=== PATIENT | female | born 1980 | race African-American/Black ===

== ENCOUNTER 2019-09-22 08:00 | Emergency (ER) | payer MEDICAID ==
--- NOTE | 2019-09-22 09:51 | ER Document Report ---
ED Medical Screen (RME) - General Chief Complaint: Near Syncope Stated Complaint: NAUSEA Time Seen by Provider: 09/22/19 09:40 Notes: Patient is a 39-year-old female who presents emergency department with a chief complaint of nausea and dizziness. Patient reports she is on day 5 of her menstrual cycle and this morning around 3 AM was having lower abdominal cramping. She reports that this did feel like menstrual cramps. She reports at that time she did take some naproxen which did not seem to help initially but right now is denying abdominal cramping as she feels like the medication is finally kicking in. Patient reports she does have a history of heavy menstrual cycles. Patient reports they typically last 7 to 8 days. Patient reports that time she does pass large clots. Patient reports this morning when the pain was severe she got up to walk and did feel dizziness. Patient denies a history of anemia. TRAVEL OUTSIDE OF THE [place] IN LAST 30 DAYS: No - Related Data Allergies/Adverse Reactions: shellfish derived Allergy (Verified 09/22/19 08:12) Past Medical History - Social History Chew tobacco use (# tins/day): No Frequency of alcohol use: None Drug Abuse: None - Past Medical History Cardiac Medical History: Denies: Hx Coronary Artery Disease, Hx Heart Attack, Hx Hypertension Pulmonary Medical History: Denies: Hx Asthma, Hx Bronchitis, Hx COPD, Hx Pneumonia Neurological Medical History: Denies: Hx Cerebrovascular Accident, Hx Seizures GI Medical History: Musculoskeltal Medical History: Denies Hx Arthritis Infectious Medical History: Past Surgical History: Reports: Hx Abdominal Surgery - hernia repair, Hx Section. Denies: Hx Pacemaker Physical Exam - Vital signs Vitals: Temp Pulse Resp BP Pulse Ox 98.2 F 84 14 127/76 H 98 09/22/19 08:04 09/22/19 08:04 09/22/19 08:04 09/22/19 08:04 09/22/19 08:04 - Abdominal Inspection: Normal Distension: No distension Bowel sounds: Normal Tenderness: Nontender Organomegaly: No organomegaly Course - Re-evaluation Re-evalutation: 09/22/19 09:48 I have greeted and performed a rapid initial assessment of this patient. A comprehensive ED assessment and evaluation of the patient, analysis of test results and completion of the medical decision making process will be conducted by additional ED providers. - Vital Signs Vital signs: Temp Pulse Resp BP Pulse Ox 98.2 F 84 14 127/76 H 98 09/22/19 08:13 09/22/19 08:04 09/22/19 08:13 09/22/19 08:04 09/22/19 08:13
[2019-09-22 10:21] LABS: ABSOLUTE MONOCYTES (AUTO) 0.4 10^3/uL (0.1-1.4); ABSOLUTE NEUT (AUTO) 11.2 10^3/uL (1.7-8.2); BASOPHILS % (AUTO) 0.3 % (0-2); HEMATOCRIT 41.1 % (36.0-47.0); HEMOGLOBIN 13.2 g/dL (12.0-15.5); MEAN CORPUSCULAR HGB CONC 32.1 g/dL (32.0-36.0); MEAN CORPUSCULAR VOLUME 81 fl (80-97); MONOCYTES % (AUTO) 3.3 % (3-13); PLATELET COUNT 281 10^3/uL (150-450); RED BLOOD COUNT 5.08 10^6/uL (3.72-5.28); RED CELL DISTRIBUTION WIDTH 16.7 % (11.5-14.0); SEGMENTED NEUTROPHILS % (AUTO) 88.4 % (42-78); TOTAL CELLS COUNTED % (AUTO) 100 %; WHITE BLOOD COUNT 12.7 10^3/uL (4.0-10.5)
[2019-09-22 10:32] LABS: APPEARANCE,URINE SLIGHTLY-CLOUDY; BILIRUBIN,URINE NEGATIVE (NEGATIVE); COLOR,URINE YELLOW; GLUCOSE, URINE NEGATIVE (NEGATIVE); KETONES,URINE NEGATIVE (NEGATIVE); LEUKOCYTE ESTERASE,URINE TRACE (NEGATIVE); NITRITE,URINE NEGATIVE (NEGATIVE); PROTEIN,URINE 100 mg/dL (NEGATIVE); URINE SPECIFIC GRAVITY 1.023; UROBILINOGEN,URINE NEGATIVE mg/dL (<2.0)
[2019-09-22 10:34] LABS: ALBUMIN 4.6 g/dL (3.5-5.0); ALKALINE PHOSPHATASE 65 U/L (38-126); ANION GAP 10 (5-19); ASPARTATE AMINO TRANSFERASE 19 U/L (14-36); BILIRUBIN,DIRECT 0.1 mg/dL (0.0-0.4); BILIRUBIN,TOTAL 0.4 mg/dL (0.2-1.3); BLOOD UREA NITROGEN 15 mg/dL (7-20); CALCIUM 9.4 mg/dL (8.4-10.2); CARBON DIOXIDE 22 mmol/L (22-30); CHLORIDE 107 mmol/L (98-107); GLUCOSE 103 mg/dL (75-110); POTASSIUM 4.8 mmol/L (3.6-5.0); TOTAL PROTEIN 7.9 g/dL (6.3-8.2)
[2019-09-22] MEDS ORDERED: ONDANSETRON ODT 4 MG TAB (6 TAB/ER DISP) PO PRN (11:19)
--- NOTE | 2019-09-22 11:19 | ER Document Report ---
ED GI/ - General Chief Complaint: Near Syncope Stated Complaint: NAUSEA Time Seen by Provider: 09/22/19 09:40 Notes: 39-year-old female who presents emergency department with a chief complaint of nausea and dizziness. Patient reports she is on day 5 of her menstrual cycle and this morning around 3 AM was having lower abdominal cramping. She reports that this did feel like menstrual cramps. She reports at that time she did take some naproxen which did not seem to help initially but right now is denying abdominal cramping as she feels like the medication is finally kicking in. Patient reports she does have a history of heavy menstrual cycles. Patient reports they typically last 7 to 8 days. Patient reports that time she does pas s large clots. Patient reports this morning when the pain was severe she got up to walk and did feel dizziness. Patient denies a history of anemia. TRAVEL OUTSIDE OF THE [place] IN LAST 30 DAYS: No - Related Data Allergies/Adverse Reactions: shellfish derived Allergy (Verified 09/22/19 08:12) Past Medical History - Social History Smoking Status: Never Smoker Chew tobacco use (# tins/day): No Frequency of alcohol use: None Drug Abuse: None Family History: None Patient has suicidal ideation: No Patient has homicidal ideation: No - Past Medical History Cardiac Medical History: Denies: Hx Coronary Artery Disease, Hx Heart Attack, Hx Hypertension Pulmonary Medical History: Denies: Hx Asthma, Hx Bronchitis, Hx COPD, Hx Pneumonia Neurological Medical History: Denies: Hx Cerebrovascular Accident, Hx Seizures GI Medical History: Musculoskeletal Medical History: Denies Hx Arthritis Infectious Medical History: Past Surgical History: Reports: Hx Abdominal Surgery - hernia repair, Hx Section. Denies: Hx Pacemaker Review of Systems - Review of Systems Constitutional: See HPI EENT: No symptoms reported Cardiovascular: See HPI Respiratory: See HPI Gastrointestinal: See HPI Genitourinary: See HPI Female Genitourinary: See HPI Musculoskeletal: No symptoms reported Skin: No symptoms reported Hematologic/Lymphatic: No symptoms reported Neurological/Psychological: See HPI Physical Exam - Vital signs Vitals: Temp Pulse Resp BP Pulse Ox 98.2 F 84 14 127/76 H 98 09/22/19 08:04 09/22/19 08:04 09/22/19 08:04 09/22/19 08:04 09/22/19 08:04 - Notes Notes: PHYSICAL EXAMINATION: Reviewed vital signs and charting by RN GENERAL: Alert, interacts well. No acute distress. HEAD: Normocephalic, atraumatic. EYES: Pupils equal and round. Extraocular movements intact. ENT: Oral mucosa moist, tongue midline. NECK: Full range of motion. Trachea midline. LUNGS: Clear to auscultation bilaterally, no wheezes, rales, or rhonchi. No respiratory distress. HEART: Regular rate and rhythm. No murmur ABDOMEN: soft, non-tender. No distention. Bowel sounds present EXTREMITIES: Moves all 4 extremities spontaneously. No edema, No cyanosis. PSYCH: Normal affect, normal mood. SKIN: Warm, dry, normal turgor. No rashes or lesions noted. Course - Re-evaluation Re-evalutation: 09/22/19 11:16 Well-appearing no acute distress, patient states that she is currently asymptomatic and feeling better. Patient believes that the naproxen she took this morning finally worked. Lab work was all unremarkable and within normal limits. She did have a mild leukocytosis at 12,700. Patient ambulated to the bathroom and was asymptomatic. Patient states that she is ready to go home. I have very low suspicion for any concerning etiology like a CVA, patient denies any palpitations I have low concern for new onset atrial fibrillation or ACS. 09/22/19 11:18 - Vital Signs Vital signs: Temp Pulse Resp BP Pulse Ox 98.2 F 84 14 127/76 H 98 09/22/19 08:13 09/22/19 08:04 09/22/19 08:13 09/22/19 08:04 09/22/19 08:13 - Laboratory Result Diagrams: 09/22/19 09:52 09/22/19 09:52 Laboratory results interpreted by me: 09/22/19 09/22/19 09:52 09:52 WBC 12.7 H MCH 26.0 L RDW 16.7 H Lymph % (Auto) 8.0 L Absolute Neuts (auto) 11.2 H Seg Neutrophils % 88.4 H Urine Protein 100 H Urine Blood LARGE H Ur Leukocyte Esterase TRACE H Discharge - Discharge Clinical Impression: Dizziness, Lightheaded Condition: Good Disposition: HOME, SELF-CARE Additional Instructions: You were seen today for lightheadedness/dizziness. The exact cause of your symptoms is unclear but your workup here is reassuring without any concerning findings. Please follow closely with your primary care physician in the next 1- 3 days. Return if you pass out, have additional episodes of lightheadedness, develop weakness/numbness, have persistent vomiting, chest pain, shortness of breath or any other symptoms that are concerning to you
[2019-09-22 11:31] VITALS: BP 118/62
== END 2019-09-22 11:35 | disposition home or self-care (01) ==
LOC: ER 08:00
DX: R42 Dizziness and giddiness (principal); R55 Syncope and collapse; R11.0 Nausea; R10.30 Lower abdominal pain, unspecified; Z91.013 Allergy to seafood
CPT/HCPCS: 36415; 80053; 81001; 81025; 85025; 99284

== ENCOUNTER 2020-04-13 06:49 | Day surgery (SDC) | payer MEDICAID ==
[2020-04-13] MEDS ORDERED: PROPOFOL INJ 200 MG/20 ML VIAL IV ONE ×2 (07:46→08:57)
[2020-04-13] MEDS ORDERED: LIDOCAINE 2% INJ-PF (20 MG/ML) 10 ML AMPUL ONE (08:58)
--- NOTE | 2020-04-13 09:31 | Operative Report ---
Operative Report DATE OF SURGERY: 04/13/20 Operative Report: The risk, benefits and alternatives of the procedure including the risks of bleeding, perforation requiring surgery have been explained to the patient in detail and informed consent has been obtained. The patient is placed in a left, lateral decubital position. Timeout was called. Propofol medication is administered. Rectal examination is done which did not reveal any masses, tears or fissures. An Olympus videoscope was introduced into the patient's rectum. Scope was then carefully advanced all the way to the cecum. Cecum was identified by the usual anatomical landmarks including the ileocecal valve as well as the appendiceal office. Photodocumentation is obtained. Scope was then sequentially pulled back via the various segments of the colon including the ascending colon, hepatic flexure, transverse colon, splenic flexure, descending colon finding to the rectosigmoid portions of the colon. Retroflexion maneuvers performed. The risks benefits and alternatives of the procedure explained to the patient in detail and informed consent is obtained.A GIF Olympus video scope was inserted into the patient's mouth and hypopharynx ,the esophagus is identified intubated and insufflated, the scope was then advanced through the esophagus stomach and duodenum, retroflexion maneuver is done, the esophagus stomach and first and second portions of the duodenum examined PREOPERATIVE DIAGNOSIS: Change in bowel habits. Gastroesophageal reflux disease POSTOPERATIVE DIAGNOSIS: Right side colon inflammation status post biopsy, rule out collagenous colitis. Diverticulosis without any evidence of diverticulitis. Internal hemorrhoids. Gastritis status post biopsy OPERATION: Colonoscopy with biopsy. EGD with biopsy SURGEON: KWABENA GUNTER ANESTHESIA: LMAC TISSUE REMOVED OR ALTERED: As noted above. COMPLICATIONS: None. ESTIMATED BLOOD LOSS: None. INTRAOPERATIVE FINDINGS: As noted above. PROCEDURE: Patient tolerated the procedure well. No immediate postprocedure complications are noted. Patient is discharged in good condition. Discharge date 04/13/2020. Discharge diet: Regular. Discharge activity: Regular. 2 to 3-week follow-up to discuss findings. Patient is instructed to call the office or proceed to the emergency room should there be any further problems or questions. Wait on the pathology.
[2020-04-13 10:01] VITALS: BP 134/92
== END 2020-04-13 10:10 | disposition home or self-care (01) ==
LOC: END 06:49
PROVIDERS: ATTEND Internal Medicine Gastroenterology
DX: K21.9 Gastro-esophageal reflux disease without esophagitis (principal); R19.4 Change in bowel habit; K52.9 Noninfective gastroenteritis and colitis, unspecified; K57.30 Diverticulosis of large intestine without perforation or abscess without bleeding; K64.8 Other hemorrhoids; K31.9 Disease of stomach and duodenum, unspecified; Z79.899 Other long term (current) drug therapy; Z03.818 Encounter for observation for suspected exposure to other biological agents ruled out
CPT/HCPCS: 43239; 45380; 87635; 88342 ×2; 88305 ×2; 00813; J2704; J3490; C9803; 813

== ENCOUNTER 2020-07-30 06:22 | Day surgery (SDC) | payer MEDICAID ==
[2020-07-27 11:54] LABS: APPEARANCE,URINE SLIGHTLY-CLOUDY; BILIRUBIN,URINE NEGATIVE (NEGATIVE); COLOR,URINE YELLOW; GLUCOSE, URINE NEGATIVE (NEGATIVE); KETONES,URINE NEGATIVE (NEGATIVE); LEUKOCYTE ESTERASE,URINE MODERATE (NEGATIVE); NITRITE,URINE NEGATIVE (NEGATIVE); PROTEIN,URINE NEGATIVE (NEGATIVE); URINE SPECIFIC GRAVITY 1.016; UROBILINOGEN,URINE NEGATIVE mg/dL (<2.0)
[2020-07-27 11:57] LABS: HEMATOCRIT 40.1 % (36.0-47.0); HEMOGLOBIN 13.2 g/dL (12.0-15.5); MEAN CORPUSCULAR HEMOGLOBIN 26.4 pg (27.0-33.4); MEAN CORPUSCULAR VOLUME 80 fl (80-97); PLATELET COUNT 283 10^3/uL (150-450); RED BLOOD COUNT 5.01 10^6/uL (3.72-5.28); RED CELL DISTRIBUTION WIDTH 16.1 % (11.5-14.0); WHITE BLOOD COUNT 8.3 10^3/uL (4.0-10.5)
[2020-07-27 12:15] LABS: ALBUMIN 4.4 g/dL (3.5-5.0); ALKALINE PHOSPHATASE 51 U/L (38-126); ANION GAP 14 (5-19); ASPARTATE AMINO TRANSFERASE 31 U/L (14-36); BILIRUBIN,DIRECT 0.3 mg/dL (0.0-0.4); BILIRUBIN,TOTAL 0.4 mg/dL (0.2-1.3); BLOOD UREA NITROGEN 8 mg/dL (7-20); CALCIUM 9.5 mg/dL (8.4-10.2); CARBON DIOXIDE 19 mmol/L (22-30); CHLORIDE 106 mmol/L (98-107); GLUCOSE 95 mg/dL (75-110); POTASSIUM 4.2 mmol/L (3.6-5.0); TOTAL PROTEIN 7.3 g/dL (6.3-8.2)
[~2020-07-30 06:22] MED LIST: CEFAZOLIN 1 GM/D5W RTU 1 GM/50 ML RTUPB IV ONE; CEFAZOLIN 1 GM/D5W RTU 1 GM/50 ML RTUPB IV PRN; LACTATED RINGERS 1000 ML IV PRN; LIDOCAINE 0.5% INJ-PF (5 MG/ML) 50 ML SDV SUBCUT PRN; RINGERS SOLUTION,LACTATED 1,000 ML IV PRN
[2020-07-30] MEDS ORDERED: LIDOCAINE 2% INJ-PF (20 MG/ML) 10 ML AMPUL ONE (07:41)
[2020-07-30] MEDS ORDERED: MORPHINE SULFATE 10 MG/ML INJ ONE (07:42)
[2020-07-30] MEDS ORDERED: MIDAZOLAM 2 MG/2 ML INJ ONE (07:42)
[2020-07-30] MEDS ORDERED: PROPOFOL INJ 200 MG/20 ML VIAL IV ONE (07:42)
[2020-07-30] MEDS ORDERED: FENTANYL CITRATE INJ/PF 250 MCG/5 ML AMPULE ONE (07:42)
[2020-07-30] MEDS ORDERED: SUGAMMADEX SODIUM 200 MG/2 ML SDV IV ONE (07:43)
[2020-07-30] MEDS ORDERED: PROMETHAZINE HCL INJ 25 MG/1 ML VIAL IV PRN ×2 (11:17→11:20)
[2020-07-30] MEDS ORDERED: MORPHINE SULFATE 10 MG/ML INJ IV PRN ×2 (11:17→11:20)
[2020-07-30] MEDS ORDERED: ONDANSETRON HCL INJ/PF 4 MG/2 ML SDV IV PRN (11:17)
[2020-07-30] MEDS ORDERED: MEPERIDINE HCL/PF INJ 25 MG/1 ML DISP.SYRIN IV PRN (11:17)
[2020-07-30] MEDS ORDERED: DIPHENHYDRAMINE HCL 50 MG/ML VIAL IV PRN (11:17)
[2020-07-30] MEDS ORDERED: FENTANYL CITRATE INJ/PF 100 MCG/2 ML AMPUL IV PRN ×3 (11:17)
[2020-07-30] MEDS ORDERED: OXYCODONE-ACETAMINOPHEN 5-325 MG TABLET PO PRN ×4 (11:17→11:20)
[2020-07-30] MEDS ORDERED: RINGERS SOLUTION,LACTATED 1,000 ML IV PRN (11:20)
[2020-07-30] MEDS ORDERED: ACETAMINOPHEN 325 MG TABLET PO PRN (11:20)
[2020-07-30] MEDS ORDERED: ACETAMINOPHEN 1,000 MG/100 ML RTUPB IV PRN (11:20)
[2020-07-30] MEDS ORDERED: DIPH/PERTUSS(ACELL)/TETANUS VAC/PF 0.5 ML SYR (>=10YO) IM PRN (11:20)
[2020-07-30] MEDS ORDERED: SIMETHICONE 80 MG TAB.CHEW PO PRN (11:20)
[2020-07-30] MEDS ORDERED: MEASLES,MUMPS&RUBELLA VACC/PF 0.5 ML VIAL SUBCUT PRN (11:20)
--- NOTE | 2020-07-30 11:20 | Operative Report ---
Operative Report DATE OF SURGERY: 07/30/20 PREOPERATIVE DIAGNOSIS: abnormal uterine bleeding, pelvic pain, adhesive disease POSTOPERATIVE DIAGNOSIS: same OPERATION: robotic assisted laparoscopic hysterectomy with bilateral salpingectomy and lysis of adhesions SURGEON: SOMMER MCCLOUD 1ST BINDING BENCH WORKER: CECI TELLO ANESTHESIA: GA TISSUE REMOVED OR ALTERED: Uterus vacs and bilateral fallopian tubes COMPLICATIONS: None ESTIMATED BLOOD LOSS: None 50 cc INTRAOPERATIVE FINDINGS: Dense omental adhesions to the anterior abdominal wall small amount of hernia mesh was altered during entry into the abdomen but this was easily repaired on closure of the fascia PROCEDURE: Patient was taken to the operating room prepared and draped in normal sterile fashion in dorsolithotomy position. Under sterile conditions a Crowell catheter was placed to gravity. Speculum was placed into the vagina and the cervix was grasped on the anterior lip with a single-tooth tenaculum. The cervix was then dilated to accommodate a medium V care uterine manipulator. Manipulator it was placed. gloves were changed and attention was turned to the upper portion of the case. A 2-1/2 cm umbilical skin incision was made 11 blade and this was carried through to the underlying layer of fascia with the same 11 blade. It was grasped to Juan R's acted with Abraham's. New cavity was entered bluntly. A GelPort was placed in a normal fashion the camera port and air seal in the appropriate locations. Collazo was then inflated with approximately 2 L of CO2 gas. The camera was then introduced into the peritoneal cavity through the camera port and the patient was placed in steep Trendelenburg. The above findings were noted. Under direct visualization two 5 mm ports were placed approximately 10 cm on either side of the umbilicus. The robot was then docked with the vessel sealer placed on the patient's left and the monopolar scissors placed placed on the patient's right. I then unscrubbed and set at the robotic console beginning with the left adnexa fallopian tube was transected from the uterus using the vessel sealer and monopolar scissors as needed. The fallopian tube was then removed through the assistance port. The ovarian ligament was then transected using the vessel sealer. The uterine artery was skeletonized using blunt dissection and ligated using the vessel sealer down to the level of the external cervical os. The bladder flap was then begun using monopolar scissors and blunt dissection over the V care cup noted through the mucosa. Attention was then turned to the right adnexa where the fallopian tube was transected in a similar fashion. The utero-ovarian ligament was transected using the vessel sealer. The Uterine artery was then transected using the vessel sealer and skeletonized using blunt dissection. The vessel sealer was again used to completely transect the uterine artery down to the level of the external cervical os. The bladder flap was completed after takedown of adhesions from the bladder peritoneum to the lower uterine segment the monopolar scissors. Once the bladder was felt to be adequately away from the lower uterine segment, the colpotomy was begun on the anterior aspect of the cervix following the outline of the V care cup mucosa. The cup was followed in a circumferential fashion completely around the cervix estimate was completely freed. The specimen was then removed through the vaginal defect. The instruments were then changed to a Flo needle motor coach driver and pro-grasp. AV lock needle was introduced through the assistance port. The lock needle was used to close the vaginal cuff and hemostasis. The needle was then removed through the assistance port. The peritoneal cavity was carefully inspected the ureters were noted to both be peristalsing and there was no signs of hydroureter. The robot was then undocked. The fascia was closed at the umbi lical skin incision seen 0 Vicryl 3 skin incisions were closed using 4-0 Vicryl. Sponge lap and needle counts were correct x2 and the patient was taken to recovery in stable condition.
[2020-07-30] MEDS ORDERED: DEXAMETHASONE SOD PHOSPHATE INJ 4 MG/1 ML VIAL ONE (11:24)
[2020-07-30] MEDS ORDERED: DIPHENHYDRAMINE HCL 50 MG/ML VIAL ONE (11:24)
[2020-07-30] MEDS ORDERED: KETOROLAC TROMETHAMINE 60 MG/2 ML SDV ONE (11:24)
[2020-07-30] MEDS ORDERED: PHENYLEPHRINE HCL INJ/PF 10 MG/1 ML SDV ONE (11:24)
[2020-07-30] MEDS ORDERED: ONDANSETRON HCL INJ/PF 4 MG/2 ML SDV ONE (11:24)
[2020-07-30] MEDS ORDERED: ROCURONIUM BROMIDE INJ 50 MG/5 ML VIAL IV ONE (11:24)
[2020-07-30] MEDS ORDERED: GLYCOPYRROLATE 1 MG/5 ML VIAL ONE (11:24)
[2020-07-30] MEDS: IBUPROFEN 800 MG TABLET PO SCH ×2 (14:21→17:46)
[2020-07-30] MEDS: KETOROLAC TROMETHAMINE INJ/PF 30 MG/1 ML SDV IV SCH ×2 (14:24→22:32)
[2020-07-30] MEDS ORDERED: DOCUSATE SODIUM 100 MG CAPSULE PO SCH (18:00)
[2020-07-31 06:51] LABS: HEMATOCRIT 26.1 % (36.0-47.0); HEMOGLOBIN 8.5 g/dL (12.0-15.5); MEAN CORPUSCULAR HEMOGLOBIN 26.2 pg (27.0-33.4); MEAN CORPUSCULAR HGB CONC 32.6 g/dL (32.0-36.0); MEAN CORPUSCULAR VOLUME 81 fl (80-97); PLATELET COUNT 254 10^3/uL (150-450); RED BLOOD COUNT 3.24 10^6/uL (3.72-5.28); RED CELL DISTRIBUTION WIDTH 16.1 % (11.5-14.0)
[2020-07-31] MEDS: KETOROLAC TROMETHAMINE INJ/PF 30 MG/1 ML SDV IV SCH (07:06)
[2020-07-31] MEDS: IBUPROFEN 800 MG TABLET PO SCH (07:07)
--- NOTE | 2020-07-31 08:09 | PDOC DISCHARGE SUMMARY ---
Impression - Admit/DC Date/PCP Admission Date/Primary Care Provider: RAZA IBARRA NP Discharge Date: 07/31/20 - Discharge Diagnosis (1) Abnormal uterine bleeding Is this a current diagnosis for this admission?: Yes (2) Pelvic pain Is this a current diagnosis for this admission?: Yes (3) Pelvic adhesive disease Is this a current diagnosis for this admission?: Yes - Assessment Summary: Patient underwent a RA TLH with bilateral salpingectomy and extensive lysis of adhesions yesterday. Has had unremarkable postoperative course and is ambulating well tolerating diet. She is voiding normally. Pain is minimal. Desires discharge home - Additional Information Resuscitation Status: Full Code Discharge Diet: As Tolerated Discharge Activity: Balance Activity w/Rest, No Driving, No Lifting Over 10 Pounds, No Lifting/Push/Pulling, Pelvic Rest, No tub bath Referrals: RAZA IBARRA NP [Primary Care Provider] - Prescriptions: Oxycodone HCl/Acetaminophen [Percocet 5-325 mg Tablet] 1 tab PO Q4HP PRN #30 tablet PRN Reason: Docusate Sodium [Colace 100 mg Capsule] 100 mg PO BID #60 capsule Ibuprofen [Motrin 800 mg Tablet] 800 mg PO Q8H #60 tablet Home Medications: Omeprazole 20 mg PO DAILYP PRN 04/09/20 Docusate Sodium [Colace 100 mg Capsule] 100 mg PO BID #60 capsule 07/31/20 Ibuprofen [Motrin 800 mg Tablet] 800 mg PO Q8H #60 tablet 07/31/20 Oxycodone HCl/Acetaminophen [Percocet 5-325 mg Tablet] 1 tab PO Q4HP PRN #30 tablet 07/31/20 History of Present Illiness History of Present Illness: ERIK LIRA is a 39 year old female Physical Exam - Physical Exam Vital Signs: Temp Pulse Resp BP Pulse Ox 98.8 F 101 H 17 130/67 H 99 07/31/20 03:45 07/31/20 03:45 07/31/20 03:45 07/31/20 03:45 07/31/20 03:45 Intake & Output 07/30/20 07/31/20 08/01/20 06:59 06:59 06:59 Intake Total 0 1825 Output Total 1175 Balance 0 650 Weight 90.72 kg 95.2 kg Results Laboratory Results: WBC 11.0 10^3/uL (4.0-10.5) H 07/31/20 06:20 RBC 3.24 10^6/uL (3.72-5.28) L 07/31/20 06:20 Hgb 8.5 g/dL (12.0-15.5) L 07/31/20 06:20 Hct 26.1 % (36.0-47.0) L 07/31/20 06:20 MCV 81 fl (80-97) 07/31/20 06:20 MCH 26.2 pg (27.0-33.4) L 07/31/20 06:20 MCHC 32.6 g/dL (32.0-36.0) 07/31/20 06:20 RDW 16.1 % (11.5-14.0) H 07/31/20 06:20 Plt Count 254 10^3/uL (150-450) 07/31/20 06:20 Sodium 138.8 mmol/L (137-145) 07/27/20 10:45 Potassium 4.2 mmol/L (3.6-5.0) 07/27/20 10:45 Chloride 106 mmol/L (98-107) 07/27/20 10:45 Carbon Dioxide 19 mmol/L (22-30) L 07/27/20 10:45 Anion Gap 14 (5-19) 07/27/20 10:45 BUN 8 mg/dL (7-20) 07/27/20 10:45 Creatinine 0.64 mg/dL (0.52-1.25) 07/27/20 10:45 Est GFR ( Amer) > 60 (>60) 07/27/20 10:45 Est GFR (MDRD) Non-Af > 60 (>60) 07/27/20 10:45 Glucose 95 mg/dL (75-110) 07/27/20 10:45 Calcium 9.5 mg/dL (8.4-10.2) 07/27/20 10:45 Total Bilirubin 0.4 mg/dL (0.2-1.3) 07/27/20 10:45 Direct Bilirubin 0.3 mg/dL (0.0-0.4) 07/27/20 10:45 Neonat Total Bilirubin Not Reportable 07/27/20 10:45 Neonat Direct Bilirubin Not Reportable 07/27/20 10:45 Neonat Indirect Bili Not Reportable 07/27/20 10:45 AST 31 U/L (14-36) 07/27/20 10:45 ALT 20 U/L (<35) 07/27/20 10:45 Alkaline Phosphatase 51 U/L (38-126) 07/27/20 10:45 Total Protein 7.3 g/dL (6.3-8.2) 07/27/20 10:45 Albumin 4.4 g/dL (3.5-5.0) 07/27/20 10:45 Urine Color YELLOW 07/27/20 10:30 Urine Appearance SLIGHTLY-CLOUDY 07/27/20 10:30 Urine pH 5.0 (5.0-9.0) 07/27/20 10:30 Ur Specific [place] 1.016 07/27/20 10:30 Urine Protein NEGATIVE mg/dL (NEGATIVE) 07/27/20 10:30 Urine Glucose (UA) NEGATIVE mg/dL (NEGATIVE) 07/27/20 10:30 Urine Ketones NEGATIVE mg/dL (NEGATIVE) 07/27/20 10:30 Urine Blood LARGE (NEGATIVE) H 07/27/20 10:30 Urine Nitrite NEGATIVE (NEGATIVE) 07/27/20 10:30 Urine Bilirubin NEGATIVE (NEGATIVE) 07/27/20 10:30 Urine Urobilinogen NEGATIVE mg/dL (<2.0) 07/27/20 10:30 Ur Leukocyte Esterase MODERATE (NEGATIVE) H 07/27/20 10:30 Urine WBC (Auto) 5 /HPF 07/27/20 10:30 Urine RBC (Auto) 2 /HPF 07/27/20 10:30 Squamous Epi Cells Auto 6 /HPF 07/27/20 10:30 Urine Mucus (Auto) RARE /LPF 07/27/20 10:30 Urine Ascorbic Acid NEGATIVE (NEGATIVE) 07/27/20 10:30 Urine HCG, Qual NEGATIVE (NEGATIVE) 07/30/20 06:30 COVID-19 Source See comment 07/27/20 10:30 COVID-19 (NEFTALI) Not Detected (Not Detect) 07/27/20 10:30 Blood Type B POSITIVE 07/27/20 10:45 Antibody Screen NEGATIVE 07/27/20 10:45 Stroke Is this a Stroke Patient?: No Acute Heart Failure Is this a Heart Failure Patient?: No
[2020-07-31 08:34] VITALS: BP 122/66
== END 2020-07-31 09:17 | disposition home or self-care (01) ==
LOC: OROUT 06:22 → 2S 12:15 → OROUT 07-31 09:17
PROVIDERS: ATTEND Obstetrics & Gynecology
DX: N93.9 Abnormal uterine and vaginal bleeding, unspecified (principal); R10.2 Pelvic and perineal pain; N73.6 Female pelvic peritoneal adhesions (postinfective); N87.9 Dysplasia of cervix uteri, unspecified; N88.8 Other specified noninflammatory disorders of cervix uteri; N84.0 Polyp of corpus uteri; D25.1 Intramural leiomyoma of uterus; D25.2 Subserosal leiomyoma of uterus; N83.8 Other noninflammatory disorders of ovary, fallopian tube and broad ligament; K21.9 Gastro-esophageal reflux disease without esophagitis; N94.6 Dysmenorrhea, unspecified; N92.0 Excessive and frequent menstruation with regular cycle; Z03.818 Encounter for observation for suspected exposure to other biological agents ruled out; Z80.49 Family history of malignant neoplasm of other genital organs; Z87.891 Personal history of nicotine dependence
CPT/HCPCS: 58571; 49329; 86900; 86901; 36415 ×2; 86850; 85027 ×2; 87635; 81025; 80053; 81001; 88307 ×2; 94799; 00840; C1758; A4649; J2250; J0690; J3490 ×4; J1100; J1200; J1885 ×3; J3010; J2370; J2405; J7120; J2704; C9803; 840; J2270